=== PATIENT | female | born 1980 | race Caucasian/White ===

== ENCOUNTER 2023-08-30 23:36 | Emergency (ER) | payer MEDICAID ==
[~2023-08-30] VITALS: Ht 165.1 cm; Wt 68.0 kg
[2023-08-30 23:38] VITALS: BP_SYST 129; PULSE 120; RESP 20; TEMP 97.7; O2SAT 99
[2023-08-31] MEDS ORDERED: PHEDM120 PO (01:05)
[2023-08-31] MEDS ORDERED: PRED20TA PO (01:05)
[2023-08-31] MEDS ORDERED: TRAM50TA2 PO (01:05)
[2023-08-31] MEDS ORDERED: IBUP-1969 PO (01:05)
[2023-08-31 01:09] LABS: INFLUENZA TYPE A Negative (NEGATIVE); INFLUENZA TYPE B NEGATIVE (NEGATIVE)
[2023-08-31] MEDS ORDERED: KETOROLAC TROMETHAMINE 60 MG/2 ML VIAL IM ONE (01:45)
[2023-08-31 01:55] VITALS: BP_SYST 119; PULSE 103; RESP 20; TEMP 97.7; O2SAT 99
== END 2023-08-31 01:55 | disposition home or self-care (01) ==
LOC: SED 23:36
DX: J20.9 Acute bronchitis, unspecified (principal); R05.9 Cough, unspecified; R09.81 Nasal congestion; R50.9 Fever, unspecified; Z79.899 Other long term (current) drug therapy
CPT/HCPCS: 99285; 36415; 81025; 87804 ×2; 71045; 93005; 96372; J1885